=== PATIENT | male | born 1990 | race Caucasian/White ===

== ENCOUNTER 2018-04-14 15:47 | Inpatient (IN) | payer MEDICAID ==
--- NOTE | 2018-04-14 16:05 | EDPHY ---
H & P Time Seen by Provider: 04/14/18 15:55 Allergies/Adverse Reactions: No Known Allergies Allergy (Unverified 04/14/18 15:51) Home Medications: Medication Instructions Recorded NK [No Known Home Meds] 04/14/18 Medical Decision Making ED Course/Re-evaluation: CHIEF COMPLAINT: Manic episode HISTORY OF PRESENT ILLNESS: 27-year-old gentleman who arrived 2 days ago from [employer] [employer]. He has family in the area he claims. He has been at the longterm. He states that the company used to work for [employer] is trying to smuggle drugs from the [place]. He also states the [employer] fired him for communication problems. He also states that the [employer] and probably some national security people have stolen his identity. He also is requesting to be placed in witness protection program. He also states that his blood in only his blood can cure multiple diseases and he would like me to test his blood for those properties this evening. REVIEW OF SYSTEMS: A comprehensive 10 system review of systems is otherwise negative aside from elements mentioned in the history of present illness and medical decision making. PHYSICAL EXAM: General Appearance: Alert, well hydrated, appropriate, and non-toxic appearing. Head: Atraumatic without scalp tenderness or obvious injury Eyes: Pupils equal, round, reactive to light and accommodation, EOMI, no trauma , no injection. Ears: Clear bilaterally, no perforation, normal landmarks Nose: Atraumatic, no rhinorrhea, clear. Throat: There is no erythema or exudates, no lesions, normal tonsils, mucus membranes moist. Neck: Supple, 2+ carotid upstroke, nontender, no lymphadenopathy. Respiratory: No retractions, no distress, no wheezes, and no accessory muscle use. Lungs are clear to auscultation bilaterally. Cardiovascular: Regular rate and rhythm, no murmurs, rubs, or gallops. Bilateral carotid, radial, dorsalis pedis, and posterior tibial pulses intact. Good capillary refill all extremities. Gastrointestinal: Abdomen is soft, nontender, non-distended, no masses, no rebound, no guarding, no peritoneal signs. Musculoskeletal: Normal active ROM of all extremities, atraumatic. Neurological: Alert, appropriate, and interactive. The patient has normal DTRs and non-focal cranial nerves, motor, sensory, and cerebellar exam. Skin: No rashes, good turgor, no nodules on palpation. Past medical history: Hospitalized in the past for bipolar disorder on [facility] not currently Past surgical history: Denies Family history: Denies Social history: Single, not employed, homeless, denies use of tobacco drugs or alcohol DIFFERENTIAL DIAGNOSIS: The differential diagnosis for the patient's manic depression included but was not limited to functional and major depression, situational depression, bipolar disorder, medication side effect, drugs, and alcohol abuse. MEDICAL DECISION MAKING: Patient is in no acute distress and is hemodynamically stable. I perform screening laboratory studies. This patient is medically cleared for psychiatric evaluation. I believe this patient to use to be on a mood stabilizer should probably still be on 1. I am recommending hospitalization as this patient seems to be somewhat psychotic but is quite cooperative and answering questions appropriately
[2018-04-14] MEDS ORDERED: NICOTINE POLACRILEX 2 MG GUM B PRN (16:17)
[2018-04-14 16:22] LABS: PLATELET COUNT 204 10^3/uL (150-400)
--- NOTE | 2018-04-14 19:00 | ASMTTCLDSP ---
TLC Discharge Disposition Discharge Concerns/Recommendations: Notes: In consultation with [facility] ED physician, Arnel Benitez MD and on-call psychiatrist, Kelvin Bruno MD, both concurred that pt appears to meet 27-65 criteria requiring psychiatric hospitalization as pt appears to be at risk of harm to self due to a mental illness condition. Pt was given the 3[facility] prohibited belongings list while in the ED. Was patient given the Answers: Yes Inpatient Behavioral Health Prohibited Belongings List while in the ED? For inpatient Kelvin Bruno MD admission, the following psychiatrist agreed to accept patient for admission to Behavioral Health ([facility]): Date Signed: 04/14/2018 06:59 PM Electronically Signed By:Rivka Noble
--- NOTE | 2018-04-14 19:26 | ASMTTLCEVL ---
TLC Evaluation - Basic Information Evaluation Start Date and 04/14/2018 05:30 PM Time Hospital Status Answers: M1 Hold 72-hr M1 Hold Start Date 04/14/2018 07:00 PM and Time Patient statement Notes: I work at [employer]. I suspected a employee was smuggling cocaine and asked for my help. " Diagnosis History Notes: Pt reports a hx of bipolar disorder. Prior suicide attempts Notes: Pt denied any prior suicide attempts. Prior hospitalizations Notes: Pt reports discharging from [facility] 2 days ago after a 12 days stay. Treatment Responses Notes: Unknown History of violence Notes: Pt denied any HI. Therapist: None- Pt stated he has an appt for [facility] on 04/17/17. Medications (name, dosage, route, freq uency) Notes: Possibly trisepta. Pt state he was on a medication, which he believes may have been trisepta. He states he was only on it for 2 days and is no longer taking it now. Allergies/Reaction Notes: Nka Sleep Notes: Pt reports his sleep as fair Appetite Notes: Pt reports his appetite as fair. Medical/Surgical history Notes: None reported. Substance use history (frequency, intensity, his tory, duration) Notes: Pt reported, I have a slight drinking problem. When questioned further about his drinking habits, pt stated, I dont drink at work but I drink a little too much, maybe 2-3 drinks a couple times a week. Pts utox was negative and bal was.0. Family composition Notes: Pt stated his parents are both . Family psychiatric/substance abuse history Notes: Pt reported his father had a bit of a drinking problem. No other mental illness hx known. Developmental history Notes: Pt reported his childhood as idyllic. He reports he grew up in [place], [place]. He reports his mother of cancer when he was 13 years old and then his father later of a heart attack when pt was 20 years old. Pt denied any abuse hx. Abuse concerns Answers: None Marital status/children Notes: unmarried, no children. Living situation Notes: Pt stated he is homeless and has been for 1 week. Pt states he was staying at his stepparents house. Pt appeared vague around his living situation. Sexual history/orientation Notes: Pt is heterosexual. Peer support/family strengths Notes: Pt reports his support system is limited. He reports he had a good support system when he was working. Education level/history Notes: Pt reports he has 6 credits left to finish at school and plans to go back to school. Work history Notes: Pt is not currently working. Notes: None reported. Legal Notes: None reported. Yarsanism/Spiritual Notes: None reported. Leisure Notes: Pt enjoys playing sports. Collateral Notes: This sports writer attempted to contact pts Uncle Juan Ramon Goyal [phone]. Patient's strengths Answers: Athletic (Please select at least TWO strengths): Willingness [facility] Evaluation - Mental Status Exam Appearance: Answers: Appropriate Eye Contact: Answers: Good/Direct Mood: Answers: Euthymic Affect: Answers: Calm Relaxed Behavior: Answers: Cooperative Speech: Answers: Unclear Perseverating Thought Process: Answers: Paranoid Insight: Answers: Fair Judgement: Answers: Fair Anxiety Signs/Symptoms Answers: Generalized Anxiety Delusions: Answers: Paranoid Ideation Persecution Pt reported to have Answers: No suicidal/self-injuring ideation/behavior? Pt reported to be making Answers: Yes suicidal/self-injuring threats? Pt reported to have Answers: No aggression/assault ideation/behavior? Pt reported to be making Answers: No aggression/assault threats? Pt exhibits inability to Answers: No care for self/grave disability? Ideation/behavior is Answers: No chronic? Pt has access to means to Answers: No execute the plan? Ideation involves Answers: No serious/lethal intent? History of Answers: No suicidal/self-injuring ideation, behavior, or threats? History of Answers: No aggressive/assaultive ideation, behavior, or threats? History of serious Answers: No physical harm to self/others while in treatment setting? [facility] Evaluation - Suicide/Homicide Risk Suicide Risk Factors: Answers: Unstable Living Situation Bipolar Disorder Homicide/violence risk Answers: None factors: Current Suicidal Answers: Yes Ideation? Current Suicide Ideation Pt stated if he leaves the hospital, he will be Frequency: suicidal. Current Suicidal Ideation Answers: No in the Past 48 Hours? Current Suicidal Ideation Answers: No in the Past Month? Suicide Internal Answers: Guerline with Stress Protective Factors: Suicide External Answers: Positive Therapeutic Protective Factors: Relationships Ranking of patient's Answers: Moderate suicidal risk: Ranking of patient's Answers: Low homicidal risk: [facility] Evaluation - Wrap-up AXIS I Diagnosis (include DSM-V and ICD-10 codes), must also be entered in [facility], which is the source of truth. Notes: In consultation with [facility] ED physician, Arnel Benitez MD and on-call psychiatrist, Kelvin Bruno MD, both concurred that pt appears to meet 27-65 criteria requiring psychiatric hospitalization as pt appears to be at risk of harm to self due to a mental illness condition. Pt was given the 3N prohibited belongings list while in the ED. Bipolar I Disorder, with Psychotic Features 296.44 (F31.2) Evaluation End Date and 04/14/2018 07:00 PM Time (HH:ORTIZ): Date Signed: 04/14/2018 07:25 PM Electronically Signed By:Rivka Noble
--- NOTE | 2018-04-14 19:48 | ASMTLCPROG ---
Notes Note: Notes: Spoke with Uncle Juan Ramon Fallon cell [phone]. Work number [phone]. Juan Ramon stated pt has had difficulty holding jobs and has been showing "manic symptoms" for the past 12-18 months. While in [place], pt was diagnosed, with bipolar and they also suspected possibly schizophrenia. Pt has spending large amounts of money and has spent almost all the money in his trust fund. Juan Ramon stated that while pt was in [place] pt was resistent to taking any medications. Currently, Juan Ramon is helping pt get into [facility] and pt is on the wait list. Date Signed: 04/14/2018 07:47 PM Electronically Signed By:Rivka Noble
[2018-04-14] MEDS ORDERED: OLANZapine DISINTEGR 10 MG TAB PO PRN (22:42)
[2018-04-14] MEDS ORDERED: MAG HYDROX/AL HYDROX/SIMETH 30 ML UDCUP PO PRN (22:42)
[2018-04-14] MEDS ORDERED: LORazepam 0.5 MG TAB PO PRN (22:42)
[2018-04-14] MEDS ORDERED: MAGNESIUM HYDROXIDE 30 ML UDCUP PO PRN (22:42)
[2018-04-14] MEDS ORDERED: ACETAMINOPHEN 325 MG TAB PO PRN (22:42)
--- NOTE | 2018-04-14 23:28 | PDMN ---
Medical Necessity Medical necessity: Pt meets IP criteria as of 04/14/2018 per and [facility]- IP (Bipolar Disorders, Adult; Inpatient Care); 72 hr M1 hold, imminent danger to self.
--- NOTE | 2018-04-15 08:14 | PDGENHP ---
History and Physical - Chief Complaint concern for manic episode - History of Present Illness 27yo M with reported history of bipolar disorder presents with symptoms concerning for a manic episode. 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 He was also requesting to be placed in witness protection and stating that his blood can cure multiple diseases. He was then admitted to the [facility]. On my interview with the patient, he is sitting up reading in bed. He is unable to tell me where he's been living recently but says he has family about an hour away. He denies any recent localizing infectious symptoms or fevers/chills. He reports previously being on trileptal for his bipolar but developed a rash; he is unsure who was prescribing this. He denies using any illicit substances. History Information - Allergies/Home Medication List Allergies/Adverse Reactions: No Known Allergies Allergy (Unverified 04/14/18 15:51) Home Medications: Nicotine Polacrilex [Nicotine Gum] 2 mg BC Q3 PRN 04/14/18 [Last Taken Unknown] risperiDONE [Risperdal 0.5mg (*)] 0.5 mg PO BID 04/14/18 [Last Taken 04/12/18] I have personally reviewed and updated: family history, medical history, social history, surgical history - Past Medical History Additional medical history: suspected bipolar disorder - Surgical History Additional surgical history: LLE tib-fib and talus surgical repair (01/2017 in [place]) - Family History Positive for: non-pertinent - Social History Smoking Status: Current every day smoker (1/2 ppd) Alcohol Use: Other (previous heavy use, now rarely) Drug Use: None Additional social history: he is unable to tell me where he is living, went to high school and a few years of college ([employer]) in [place], attended grad school at [employer] and studied [employer] as well as business; smokes 1/2 ppd, no recent etoh but previously used more heavily in early 20s, denies illicits Review of Systems Review of Systems: ROS: 10pt was reviewed & negative except for what was stated in HPI & below Physical Exam Physical Exam: Temp Pulse Resp BP Pulse Ox 36.5 C 70 15 102/67 97 12/31/18 06:00 04/15/18 06:00 04/15/18 06:00 04/15/18 06:00 04/15/18 06:00 Constitutional: no apparent distress, appears nourished, not in pain Eyes: PERRL, anicteric sclera, EOMI Ears, Nose, Mouth, Throat: moist mucous membranes, hearing normal, ears appear normal, no oral mucosal ulcers Cardiovascular: regular rate and rhythym, no murmur, rub, or gallop, No edema Respiratory: no respiratory distress, no rales or rhonchi, clear to auscultation Gastrointestinal: normoactive bowel sounds, soft, non-tender abdomen, no palpable masses Genitourinary: no bladder fullness, no bladder tenderness Skin: warm, normal color, no rashes or abrasions, no fluctuance, no induration, other (well healed LLE scar), No mottled Musculoskeletal: full muscle strength, no muscle tenderness, normal joint ROM, no joint effusions Neurologic: AAOx3 Psychiatric: interacting appropriately, other (occasionally laughing) Lab Data & Imaging Review 04/14/18 16:08 04/14/18 16:08 WBC 7.44 10^3/uL (3.80-9.50) 04/14/18 16:08 RBC 5.10 10^6/uL (4.40-6.38) 04/14/18 16:08 Hgb 16.9 g/dL (13.7-17.5) 04/14/18 16:08 Hct 47.7 % (40.0-51.0) 04/14/18 16:08 MCV 93.5 fL (81.5-99.8) 04/14/18 16:08 MCH 33.1 pg (27.9-34.1) 04/14/18 16:08 MCHC 35.4 g/dL (32.4-36.7) 04/14/18 16:08 RDW 11.3 % (11.5-15.2) L 04/14/18 16:08 Plt Count 204 10^3/uL (150-400) 04/14/18 16:08 MPV 12.2 fL (8.7-11.7) H 04/14/18 16:08 Neut % (Auto) 66.1 % (39.3-74.2) 04/14/18 16:08 Lymph % (Auto) 22.4 % (15.0-45.0) 04/14/18 16:08 [place] % (Auto) 9.3 % (4.5-13.0) 04/14/18 16:08 Eos % (Auto) 1.6 % (0.6-7.6) 04/14/18 16:08 Baso % (Auto) 0.3 % (0.3-1.7) 04/14/18 16:08 Nucleat RBC Rel Count 0.0 % (0.0-0.2) 04/14/18 16:08 Absolute Neuts (auto) 4.92 10^3/uL (1.70-6.50) 04/14/18 16:08 Absolute Lymphs (auto) 1.67 10^3/uL (1.00-3.00) 04/14/18 16:08 Absolute Monos (auto) 0.69 10^3/uL (0.30-0.80) 04/14/18 16:08 Absolute Eos (auto) 0.12 10^3/uL (0.03-0.40) 04/14/18 16:08 Absolute Basos (auto) 0.02 10^3/uL (0.02-0.10) 04/14/18 16:08 Absolute Nucleated RBC 0.00 10^3/uL (0-0.01) 04/14/18 16:08 Immature Gran % 0.3 % (0.0-1.1) 04/14/18 16:08 Immature Gran # 0.02 10^3/uL (0.00-0.10) 04/14/18 16:08 Sodium 137 mEq/L (135-145) 04/14/18 16:08 Potassium 4.3 mEq/L (3.5-5.2) 04/14/18 16:08 Chloride 104 mEq/L (97-110) 04/14/18 16:08 Carbon Dioxide 26 mEq/l (22-31) 04/14/18 16:08 Anion Gap 7 mEq/L (6-14) 04/14/18 16:08 BUN 14 mg/dL (7-23) 04/14/18 16:08 Creatinine 0.8 mg/dL (0.7-1.3) 04/14/18 16:08 Estimated GFR > 60 04/14/18 16:08 Glucose 102 mg/dL (70-100) H 04/14/18 16:08 Calcium 9.5 mg/dL (8.5-10.4) 04/14/18 16:08 Total Bilirubin 0.9 mg/dL (0.1-1.4) 04/15/18 06:00 Conjugated Bilirubin 0.4 mg/dL (0.0-0.5) 04/15/18 06:00 Unconjugated Bilirubin 0.5 mg/dL (0.0-1.1) 04/15/18 06:00 AST 34 IU/L (17-59) 04/15/18 06:00 ALT 22 IU/L (21-72) 04/15/18 06:00 Alkaline Phosphatase 48 IU/L (38-126) 04/15/18 06:00 Total Protein 7.5 g/dL (6.3-8.2) 04/15/18 06:00 Albumin 4.5 g/dL (3.5-5.0) 04/15/18 06:00 Triglycerides 73 mg/dL (40-150) 04/15/18 06:00 Cholesterol 170 mg/dL (140-200) 04/15/18 06:00 Cholesterol Risk Factr 0.5 (0.2-1.0) 04/15/18 06:00 LDL Cholesterol, Calc 94 mg/dL (60-100) 04/15/18 06:00 LDL Risk Factor 0.6 (0.2-1.0) 04/15/18 06:00 VLDL Cholesterol 15 mg/dL (8-25) 04/15/18 06:00 Non-HDL Cholesterol 109 mg/dL (90-129) 04/15/18 06:00 HDL Cholesterol 61 mg/dL (40-70) 04/15/18 06:00 LDL/HDL Ratio 1.55 RATIO (1.00-3.64) 04/15/18 06:00 Cholesterol/HDL Ratio 2.79 RATIO (1.00-4.97) 04/15/18 06:00 TSH 0.686 uIU/mL (0.465-4.680) 04/15/18 06:00 Salicylates < 1.0 mg/dL (2.0-20.0) L 04/14/18 16:08 Urine Opiates Screen NEGATIVE (NEGATIVE) 04/14/18 17:00 Acetaminophen < 10 mcg/mL (10-30) L 04/14/18 16:08 Urine Barbiturates NEGATIVE (NEGATIVE) 04/14/18 17:00 Ur Phencyclidine Scrn NEGATIVE (NEGATIVE) 04/14/18 17:00 Ur Amphetamine Screen NEGATIVE (NEGATIVE) 04/14/18 17:00 U Benzodiazepines Scrn NEGATIVE (NEGATIVE) 04/14/18 17:00 Urine Cocaine Screen NEGATIVE (NEGATIVE) 04/14/18 17:00 U Marijuana (THC) Screen NEGATIVE (NEGATIVE) 04/14/18 17:00 Ethyl Alcohol < 10 mg/dL (0-10) 04/14/18 16:08 Assessment & Plan Assessment: Unspecified psychosis (Acute) Plan: 27yo M with reported bipolar disorder admitted for catherine. 1. Manic episode: Management per psychiatry team for possible mood stabilizer. Previously on trileptal but reportedly had rash with this. 2. Tobacco use: Agree with nicotine replacement as ordered. Can trial patch if needed. Internal medicine will sign off but please page/call with questions. Thanks.
--- NOTE | 2018-04-15 09:10 | ASMTBHMTP ---
Master Treatment Plan Master Treatment Plan Answers: Mood Instability with for: Psychosis Date: 04/15/2018 Diagnosis on Admission: Bipolar 1 Disorder, with Psychotic Features 296.44 Expected length of stay: 3-5 Days Reason for admission: Notes: Per TLC Evaluation - Pt. stated "I work as [employer]. I suspected a employee was smuggling cocaine and asked for me help." Patient's stated presenting problems: Notes: Pt. shared about an employee he suspected was smuggling cocaine and how this employee was fired. Pt. shared about how he then had his information stolen and lost his own job. Patient's goals for treatment: Notes: "Get some exercise", "Get an acuate diagnosis" and "get into Witness Protection" Patient's strengths: Notes: "Can put a puzzle together like no one I've met", and "Physical apptitude" Identify supports outside of hospital: Notes: Trusted uncle and tax associate attorney in [place]. Discharge criteria: Notes: Patient will demonstrate more stable mood by discharge. Initial disposition plan/considerations: Notes: Enter Witness protection or "get into a more suitable housing". Master Treatment Plan Required Signatures Psychiatrist signature: Answers: Psychiatrist: RN on-shift signature: Answers: RN: Patient signature: Answers: Patient: Date Signed: 04/15/2018 09:10 AM Electronically Signed By:Elisa Curtis
[2018-04-15] MEDS: NICOTINE POLACRILEX 2 MG GUM B PRN ×3 (09:18→17:58)
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
[2018-04-15] MEDS: OLANZapine DISINTEGR 10 MG TAB PO SCH (20:59)
--- NOTE | 2018-04-16 11:08 | SOAPPROG ---
SOAP Progress Note Assessment/Plan: Assessment: Bipolar I Disorder, with mood congruent psych features, Alcohol Use Disorder, Severe. R/O Schizoaffective Disorder. Slight/No improvement noted. (see subjective/objective note). Patient is not safe to discharge at this time as patient continues to exhibit signs of psychosis, and express psychosis symptoms. Patient requires continued inpatient care because of current psychosis, and requires inpatient level of care to stabilize in order to no longer be gravely disabled due to mental illness. Patient is unable to communicate his basic needs due to inability to test reality, and continues to require prompting and direction from staff for ADLs. Patient exhibits inability to provide for himself, neglecting self-care, withdrawn from social interactions, currently shows inability to maintain any appropriate aspect of personal responsibility as an adult, patient becomes agitated and irritable easily when asked simple and appropriate questions from staff. Currently there is no support system in place to manage patients functional impairment at lower level of care. Patient could benefit from continued inpatient hospitalization for crisis stabilization, safety, and medication evaluation. Plan: 1. Psychotropic medications: After reviewing options, risks, and benefits patient agrees to continue current medications. No other medication changes at this time as more time is needed to determine ongoing tolerability and efficacy. Plan is to continue to observe patient for response and side effects from medications, and ongoing monitoring and evaluation. 2. Review with patient informed consent and recommendations for psychotropic medication treatment listed below. 3. Labs: no additional labs at this time. 4. Therapy: continue milieu and group therapy. 5. Further investigation including gathering information from patients relatives and review of past case records to inform treatment plan. 6. Safety/Wellness plan and follow-up outpatient appointments to be established prior to discharge. Next steps are for patient to meet with zoo caretaker to plan a safe discharge plan and establish outpatient services for ongoing treatment. 7. Confer with inpatient treatment team regarding treatment plan. 8. Psychosocial stressors addressed through corrections caseworker. 9. Legal status: M1. 10. Consider discharge next week if patient is in stable condition, safe, and has a safe discharge plan. 11. Substance abuse interventions: alcohol. 12. Contact Dr. Joyce CO Soni to determine if patient has started intake for [facility]. PSYCHOTROPIC MEDICATION TREATMENT INFORMED CONSENT and RECOMMENDATIONS: Review nature of condition, diagnosis, and prognosis. Review nature and purpose of psychotropic medication treatment. Review type of psychotropic medications being ordered. Review risk and benefits of psychotropic medication treatment. Review probable length of time patient will need to take medications. Review risk and benefits of not undergoing psychotropic medication treatment. Review alternative treatments to psychotropic medications. Review psychotropic medications contraindications, drug-drug interactions, side effects, and importance of reporting any side effects to a psychiatric provider or nurse during inpatient hospitalization, and upon discharge to patients psychiatric outpatient provider, primary care provider, or other health patient care associate. Review importance of asking a nurse, psychiatric provider, or primary care provider any questions or problems concerning the psychotropic medications. Verify patient understands the information that has been provided, and understands, accepts, and agrees to psychotropic medications. Review patients safety plan and importance of patient to report to staff while hospitalized if patient is ever a danger to self/others, or unable to care for self, and upon discharge, the importance for patient to contact [facility] or [facility], or go to the nearest emergency room, if patient is ever a danger to self/others, or unable to care for self. Recommend that upon discharge patient establish medication management treatment with a psychiatric provider, establishes routine therapy appointments, and follow-up with primary care provider. Verify patient understands and agrees to these recommendations. 04/16/18 11:09 Subjective: Following up with patient for evaluation of psychosis, catherine, and safety. Patient reports, "I am going to refuse medications from now on. I came here to get in witness protection program for knocking out a drug ring. They need to look into Sidney's phone records to prove the drug ring." Patient expresses the following psychiatric symptoms none. Patient reports taking medications as prescribed, and describes response to medications as "too tired." Patient agrees to continue Zyprexa Zydis 10 mg po QHS after provided medication education including side effects. Patient does not report other undesirable side effects from the medications, and agrees to continue current medications. Patient describes getting 10 hours of sleep. Patient reports prior to his admission, his uncle was looking into sending him to [facility], and he reports he also had an appointment at [facility] for intake. Patient agrees to sign ELE forms for CC to contact these facilities for coordination of care. Objective: Vital Signs Temp Pulse Resp BP Pulse Ox 36.8 C 64 14 114/64 97 04/16/18 06:00 04/16/18 06:00 04/16/18 06:00 04/16/18 06:00 04/16/18 06:00 NURSING REPORT: Consulted with nursing for update on patients progress in treatment. Nurses report patient is not engaged in treatment, is not attending groups, slept 7 hours, expresses the following psychiatric symptoms: none, exhibits the following psychiatric symptoms: paranoid delusions; withdrawn from social interactions; is eating all meals, is agreeable to medications and taking as prescribed with no report of side effects, with no s/s of EPS/ akathisia, and denies SI/HI, denies A/V hallucinations, and denies delusions. MSE: The patient is a well-nourished male looking stated chronological age. Attire is appropriate dress is casual. Grooming status is inappropriate and disheveled. Ambulation is independent. Gait is normal and coordinated. Posture is normal and relaxed. Eye contact is appropriate. Motor activity is appropriate with purposeful, organized, coordinated movements; with no involuntary movements. Attitude is uncooperative, defensive and guarded at times. Patient appears distracted and does not relate well to this interviewer. Language production is spontaneous. R/R/V normal. Articulation is clear. Patient reports mood as okay with appropriate affect. Patients thought process is non-linear, illogical, with loose associations, and tangential. Patient does not report suicidal/homicidal thoughts, ideas, or plans. Patient denies auditory, visual hallucinations. Patient reports delusions. Patient does not appear to be attending to internal stimuli. Patients attention and concentration are poor. Patient is oriented to person, place, time. Patients insight is poor. Patients judgment is poor. SUBSTANCE ABUSE BRIEF INTERVENTION: Brief intervention regarding the risks of alcohol abuse is provided to patient with goal to reduce the risk of harm that could result from the continued use of alcohol, with the general aim to investigate the problem, raise awareness of problem, develop a solution with the patient, recommend a specific change or activity, and motivate the patient toward change. Assess substance abuse behavior and give supportive advice about harm reduction, recommend a reduction in hazardous/at-risk consumption patterns, and facilitate referrals for additional specialized treatment with home care consultant. Intermediate goal is for the patient to quit and attend outpatient substance abuse treatment. Intervention focus on intermediate goals to allow for more immediate success in the treatment process to keep the patient motivated. Review following with patient: Alcohol/Binge Drinking risks : short-term: injuries, violence, alcohol poisoning, risky sexual behaviors. Long-term: high blood pressure, stroke, liver disease, digestive problems, cancer, learning and memory problems, depression and anxiety, social problems, and alcohol dependence. OUTPATIENT SUBSTANCE ABUSE TREATMENT: Patient referred to outpatient provider and treatment for continued treatment related to substance abuse. - Time Spent With Patient Time Spent With Patient: 25 minutes, met with patient individually and patient with treatment team to review treatment plan and goals for hospitalization. - Pending Discharge Pending Discharge Within 24 Hours: No Pending Discharge Within 48 Hours: No ICD10 Worksheet Patient Problems: Problems Problem Status Onset Unspecified psychosis Acute
--- NOTE | 2018-04-16 14:14 | ASMTCMCOM ---
CM Note CM Note Notes: The patient participated in clinical treatment team rounds. The patient was recently discharged from [facility] inpatient care. The patient presents as grandiose and paranoid. 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 Per Juan Ramon Goyal, "His parents are both ([facility] 2009, [facility] 2004). He has lost two jobs in the last several months; one in [place] and another in [place]. He obviously has no money. He is looking for someone in the family to help him. His step mother paid for him to come to [place] from [place]. He was exhibiting manic episodes and went to the local hospital. He was released from [facility] on Sunday (04/12/18). I don't know whether he took his medication on Sunday. He stipulated with medication after one week" because his family made it a condition of their support. Juan Ramon has coordinated the patient's records be sent from [facility] to [facility] for review and possible admission into [facility]. Date Signed: 04/16/2018 02:13 PM Electronically Signed By:Tammy Dominguez
[2018-04-16] MEDS: NICOTINE POLACRILEX 2 MG GUM B PRN (16:11)
[2018-04-16] MEDS: OLANZapine DISINTEGR 10 MG TAB PO SCH (20:40)
[2018-04-17] MEDS: NICOTINE POLACRILEX 2 MG GUM B PRN ×2 (07:39→18:46)
--- NOTE | 2018-04-17 08:20 | SOAPPROG ---
SOAP Progress Note Assessment/Plan: Assessment: Bipolar I Disorder, with mood congruent psych features, Alcohol Use Disorder, Severe. R/O Schizoaffective Disorder. No improvement noted. (see subjective/ objective note). Patient is not safe to discharge at this time as patient continues to exhibit signs of psychosis, and express psychosis symptoms. Patient requires continued inpatient care because of current psychosis, and requires inpatient level of care to stabilize in order to no longer be gravely disabled due to mental illness. Patient has poor insight and judgement to current condition, refusing medications, and inability to test reality. Patient is unable to communicate his basic needs due to inability to test reality, and continues to require prompting and direction from staff for ADLs. Patient exhibits inability to provide for himself, neglecting self-care, withdrawn from social interactions, currently shows inability to maintain any appropriate aspect of personal responsibility as an adult. Currently there is no support system in place to manage patients functional impairment at lower level of care. Patient could benefit from continued inpatient hospitalization for crisis stabilization, safety, and medication evaluation. Plan: 1. Psychotropic medications: After reviewing options, risks, and benefits patient is not agreeable to medications. Plan is to consult with attending MD for short-term certification and court-ordered medications. 2. Review with patient informed consent and recommendations for psychotropic medication treatment listed below 3. Labs: no additional labs at this time 4. Therapy: continue milieu and group therapy 5. Further investigation including gathering information from patients relatives and review of past case records to inform treatment plan. 6. Safety/Wellness plan and follow-up outpatient appointments to be established prior to discharge. Next steps are for patient to meet with out of school hours care worker to plan a safe discharge plan and establish outpatient services for ongoing treatment. 7. Confer with inpatient treatment team regarding treatment plan. 8. Psychosocial stressors addressed through family service caseworker 9. Legal status: M1. Consult with MD for short-term certification. 10. Consider discharge next week if patient is in stable condition, safe, and has a safe discharge plan. 11. Substance abuse interventions: alcohol PSYCHOTROPIC MEDICATION TREATMENT INFORMED CONSENT and RECOMMENDATIONS: Review nature of condition, diagnosis, and prognosis. Review nature and purpose of psychotropic medication treatment. Review type of psychotropic medications being ordered. Review risk and benefits of psychotropic medication treatment. Review probable length of time patient will need to take medications. Review risk and benefits of not undergoing psychotropic medication treatment. Review alternative treatments to psychotropic medications. Review psychotropic medications contraindications, drug-drug interactions, side effects, and importance of reporting any side effects to a psychiatric provider or nurse during inpatient hospitalization, and upon discharge to patients psychiatric outpatient provider, primary care provider, or other health residential child care counselor. Review importance of asking a nurse, psychiatric provider, or primary care provider any questions or problems concerning the psychotropic medications. Verify patient understands the information that has been provided, and understands, accepts, and agrees to psychotropic medications. Review patients safety plan and importance of patient to report to staff while hospitalized if patient is ever a danger to self/others, or unable to care for self, and upon discharge, the importance for patient to contact [place] [facility] or [facility], or go to the nearest emergency room, if patient is ever a danger to self/others, or unable to care for self. Recommend that upon discharge patient establish medication management treatment with a psychiatric provider, establishes routine therapy appointments, and follow-up with primary care provider. Verify patient understands and agrees to these recommendations. 04/17/18 08:20 Subjective: Following up with patient for evaluation of psychosis, catherine, and safety. Patient reports, "Would rather talk witness protection thing instead of medications. I busted a pretty big drug ring in [place] so the least I need is witness protection program. 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 My main mistake was not reporting it the Feds. I told HR about it, and then they fired me for communication. Perhaps the whole company was involved in this drug ring. Everything I am saying is pretty accurate, I put together a YouTube video about this. Then I went outside and stood in front of the traffic lights because I know who runs the traffic lights. People are following me through cameras, by the [facility]. I am being monitored because I got put on a high security clearance. I am going through a series of tests. Mainly psychological tests, making sure I am more consistent in behavior. A lot of people are after me after busting a big drug ring in [place]." Patient expresses the following psychiatric symptoms none. Patient reports not taking medications as prescribed, and states he did not want to take the medication due to being too sedated yesterday when waking up. Patient states, "I would prefer not going on any medications to keep my head clear for this witness protection thing." Objective: Vital Signs Temp Pulse Resp BP Pulse Ox 36.7 C 66 14 116/59 L 97 04/17/18 06:00 04/17/18 06:00 04/17/18 06:00 04/17/18 06:00 04/17/18 06:00 NURSING REPORT: Consulted with nursing for update on patients progress in treatment. Nurses report patient is not engaged in treatment, is not attending groups, slept 7 hours, expresses the following psychiatric symptoms: none, exhibits the following psychiatric symptoms: paranoid delusions; withdrawn from social interactions; is eating all meals, is not agreeable to medications; patient refused Zyprexa Zydis 10 mg po QHS; denies SI/HI, denies A/V hallucinations, and reports delusions regarding needing witness protection due to busting a drug ring. MSE: The patient is a well-nourished male looking stated chronological age. Attire is appropriate dress is casual. Grooming status is inappropriate and disheveled. Ambulation is independent. Gait is normal and coordinated. Posture is normal and relaxed. Eye contact is appropriate. Motor activity is appropriate with purposeful, organized, coordinated movements; with no involuntary movements. Attitude is uncooperative, defensive and guarded at times. Patient appears distracted and does not relate well to this interviewer. Language production is spontaneous. R/R/V normal. Articulation is clear. Patient reports mood as okay with appropriate affect. Patients thought process is non-linear, illogical, with loose associations, and tangential. Patient does not report suicidal/homicidal thoughts, ideas, or plans. Patient denies auditory, visual hallucinations. Patient reports delusions. Patient does not appear to be attending to internal stimuli. Patients attention and concentration are poor. Patient is oriented to person, place, time. Patients insight is poor. Patients judgment is poor. SUBSTANCE ABUSE BRIEF INTERVENTION: Brief intervention regarding the risks of alcohol abuse is provided to patient with goal to reduce the risk of harm that could result from the continued use of alcohol, with the general aim to investigate the problem, raise awareness of problem, develop a solution with the patient, recommend a specific change or activity, and motivate the patient toward change. Assess substance abuse behavior and give supportive advice about harm reduction, recommend a reduction in hazardous/at-risk consumption patterns, and facilitate referrals for additional specialized treatment with summer child caregiver. Intermediate goal is for the patient to quit and attend outpatient substance abuse treatment. Intervention focus on intermediate goals to allow for more immediate success in the treatment process to keep the patient motivated. Review following with patient: Alcohol/Binge Drinking risks : short-term: injuries, violence, alcohol poisoning, risky sexual behaviors. Long-term: high blood pressure, stroke, liver disease, digestive problems, cancer, learning and memory problems, depression and anxiety, social problems, and alcohol dependence. OUTPATIENT SUBSTANCE ABUSE TREATMENT: Patient referred to outpatient provider and treatment for continued treatment related to substance abuse. - Time Spent With Patient Time Spent With Patient: 15 minutes, met with patient individually. - Pending Discharge Pending Discharge Within 24 Hours: No Pending Discharge Within 48 Hours: No ICD10 Worksheet Patient Problems: Problems Problem Status Onset Alcohol use disorder, severe, dependence Acute Nicotine dependence Acute Unspecified psychosis Acute
[2018-04-17] MEDS: OLANZapine DISINTEGR 10 MG TAB PO SCH (20:06)
[2018-04-18] MEDS: NICOTINE POLACRILEX 2 MG GUM B PRN ×2 (03:38→09:52)
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
[2018-04-18] MEDS ORDERED: RISPERIDONE 1 MG ODT TAB SL SCH (09:00)
--- NOTE | 2018-04-19 08:12 | SOAPPROG ---
SOAP Progress Note Assessment/Plan: Assessment: Bipolar I Disorder, with mood congruent psych features, Alcohol Use Disorder, Severe. R/O Schizoaffective Disorder. No improvement noted. (see subjective/ objective note). Patient is not safe to discharge at this time as patient continues to exhibit signs of psychosis, and express psychosis symptoms. Patient requires continued inpatient care because of current psychosis, and requires inpatient level of care to stabilize in order to no longer be gravely disabled due to mental illness. Patient has poor insight and judgement to current condition, refusing medications, and inability to test reality. Patient is unable to communicate his basic needs due to inability to test reality, and continues to require prompting and direction from staff for ADLs. Patient exhibits inability to provide for himself, neglecting self-care, withdrawn from social interactions, currently shows inability to maintain any appropriate aspect of personal responsibility as an adult. Currently there is no support system in place to manage patients functional impairment at lower level of care. Patient could benefit from continued inpatient hospitalization for crisis stabilization, safety, and medication evaluation. Plan: 1. Psychotropic medications: After reviewing options, risks, and benefits patient agrees to continue current medications with following changes: increase Risperidone M-tab to 2 mg SL QD. No other medication changes at this time as more time is needed to determine ongoing tolerability and efficacy. Plan is to continue to observe patient for response and side effects from medications, and ongoing monitoring and evaluation. 2. Review with patient informed consent and recommendations for psychotropic medication treatment listed below 3. Labs: no additional labs at this time 4. Therapy: continue milieu and group therapy 5. Further investigation including gathering information from patients relatives and review of past case records to inform treatment plan. 6. Safety/Wellness plan and follow-up outpatient appointments to be established prior to discharge. Next steps are for patient to meet with childcare teacher to plan a safe discharge plan and establish outpatient services for ongoing treatment. 7. Confer with inpatient treatment team regarding treatment plan. 8. Psychosocial stressors addressed through continuous pillowcase cutter 9. Legal status: [facility] 10. Consider discharge next week if patient is in stable condition, safe, and has a safe discharge plan. 11. Substance abuse interventions: alcohol PSYCHOTROPIC MEDICATION TREATMENT INFORMED CONSENT and RECOMMENDATIONS: Review nature of condition, diagnosis, and prognosis. Review nature and purpose of psychotropic medication treatment. Review type of psychotropic medications being ordered. Review risk and benefits of psychotropic medication treatment. Review probable length of time patient will need to take medications. Review risk and benefits of not undergoing psychotropic medication treatment. Review alternative treatments to psychotropic medications. Review psychotropic medications contraindications, drug-drug interactions, side effects, and importance of reporting any side effects to a psychiatric provider or nurse during inpatient hospitalization, and upon discharge to patients psychiatric outpatient provider, primary care provider, or other health rn wound care. Review importance of asking a nurse, psychiatric provider, or primary care provider any questions or problems concerning the psychotropic medications. Verify patient understands the information that has been provided, and understands, accepts, and agrees to psychotropic medications. Review patients safety plan and importance of patient to report to staff while hospitalized if patient is ever a danger to self/others, or unable to care for self, and upon discharge, the importance for patient to contact [facility] or [facility], or go to the nearest emergency room, if patient is ever a danger to self/others, or unable to care for self. Recommend that upon discharge patient establish medication management treatment with a psychiatric provider, establishes routine therapy appointments, and follow-up with primary care provider. Verify patient understands and agrees to these recommendations. 04/19/18 08:11 Subjective: Following up with patient for evaluation of psychosis and safety. Patient reports, "Yeah, so I took the medication. Seemed to be good for mood. I am still concerned about busting the drug ring, and would just like to get put into witness protection. Is that something I can do here?" Patient expresses the following psychiatric symptoms none. Patient reports taking medications as prescribed, and describes response to medications as good. Patient does not report undesirable side effects from the medications, and agrees to continue current medications. Patient describes getting 8 hours of sleep. Objective: Vital Signs Temp Pulse Resp BP Pulse Ox 36.8 C 80 16 117/59 L 96 04/19/18 06:00 04/19/18 06:00 04/19/18 06:00 04/19/18 06:00 04/19/18 06:00 NURSING REPORT: Consulted with nursing for update on patients progress in treatment. Nurses report patient is not engaged in treatment, is not attending groups, slept 7 hours, expresses the following psychiatric symptoms: none, exhibits the following psychiatric symptoms: paranoid delusions; withdrawn from social interactions; is eating all meals, is not agreeable to medications; patient refused Zyprexa Zydis 10 mg po QHS; denies SI/HI, denies A/V hallucinations, and reports delusions regarding needing witness protection due to busting a drug operation. MSE: The patient is a well-nourished male looking stated chronological age. Attire is appropriate dress is casual. Grooming status is inappropriate and disheveled. Ambulation is independent. Gait is normal and coordinated. Posture is normal and relaxed. Eye contact is appropriate. Motor activity is appropriate with purposeful, organized, coordinated movements; with no involuntary movements. Attitude is uncooperative, defensive and guarded at times. Patient appears distracted and does not relate well to this interviewer. Language production is spontaneous. R/R/V normal. Articulation is clear. Patient reports mood as okay with appropriate affect. Patients thought process is non-linear, illogical, with loose associations, and tangential. Patient does not report suicidal/homicidal thoughts, ideas, or plans. Patient denies auditory, visual hallucinations. Patient reports delusions. Patient does not appear to be attending to internal stimuli. Patients attention and concentration are poor. Patient is oriented to person, place, time. Patients insight is poor. Patients judgment is poor. SUBSTANCE ABUSE BRIEF INTERVENTION: Brief intervention regarding the risks of alcohol abuse is provided to patient with goal to reduce the risk of harm that could result from the continued use of alcohol, with the general aim to investigate the problem, raise awareness of problem, develop a solution with the patient, recommend a specific change or activity, and motivate the patient toward change. Assess substance abuse behavior and give supportive advice about harm reduction, recommend a reduction in hazardous/at-risk consumption patterns, and facilitate referrals for additional specialized treatment with hourly caregiver. Intermediate goal is for the patient to quit and attend outpatient substance abuse treatment. Intervention focus on intermediate goals to allow for more immediate success in the treatment process to keep the patient motivated. Review following with patient: Alcohol/Binge Drinking risks : short-term: injuries, violence, alcohol poisoning, risky sexual behaviors. Long-term: high blood pressure, stroke, liver disease, digestive problems, cancer, learning and memory problems, depression and anxiety, social problems, and alcohol dependence. OUTPATIENT SUBSTANCE ABUSE TREATMENT: Patient referred to outpatient provider and treatment for continued treatment related to substance abuse. - Time Spent With Patient Time Spent With Patient: 15 minutes, met with patient individually. - Pending Discharge Pending Discharge Within 24 Hours: No Pending Discharge Within 48 Hours: No ICD10 Worksheet Patient Problems: Problems Problem Status Onset Alcohol use disorder, severe, dependence Acute Nicotine dependence Acute Unspecified psychosis Acute
[2018-04-19] MEDS: NICOTINE POLACRILEX 2 MG GUM B PRN ×2 (08:23→15:37)
[2018-04-19] MEDS: RISPERIDONE 1 MG ODT TAB SL SCH (08:23)
[2018-04-20] MEDS: RISPERIDONE 1 MG ODT TAB SL SCH (09:12)
[2018-04-20] MEDS: NICOTINE POLACRILEX 2 MG GUM B PRN ×2 (09:12→14:35)
--- NOTE | 2018-04-20 15:05 | ASMTCMCOM ---
CM Note CM Note Notes: Pt. stated he is doing an aptitude test currently. Pt. stated he slept "pretty well". Pt. reports the food is "fantastic". Pt. reports no issues with his current medications, adding "it's balancing pretty well". Pt. reports attending "some" groups, adding he is "keeping my mind fresh" and reading, which he enjoys. Pt. reports no issues while on the unit. Pt. denied SI, HI, and AVH. Pt. reports "little bit" of paranoia, adding "given my situation it's understandable". Pt. presents as alert, calm, focused on his test, groomed, continued delusion about needing federal protection, and cooperative. Staff report pt. [id number] hours and being medication compliant. Date Signed: 04/20/2018 03:04 PM Electronically Signed By:Elisa Curtis
--- NOTE | 2018-04-20 19:11 | SOAPPROG ---
SOAP Progress Note Assessment/Plan: Assessment: Per Giovanni Gatica's notes: Bipolar I Disorder, with mood congruent psych features, Alcohol Use Disorder, Severe. R/O Schizoaffective Disorder. No improvement noted. (see subjective/ objective note). Patient is not safe to discharge at this time as patient continues to exhibit signs of psychosis, and express psychosis symptoms. Patient requires continued inpatient care because of current psychosis, and requires inpatient level of care to stabilize in order to no longer be gravely disabled due to mental illness. Patient has poor insight and judgement to current condition, refusing medications, and inability to test reality. Patient is unable to communicate his basic needs due to inability to test reality, and continues to require prompting and direction from staff for ADLs. Patient exhibits inability to provide for himself, neglecting self-care, withdrawn from social interactions, currently shows inability to maintain any appropriate aspect of personal responsibility as an adult. Currently there is no support system in place to manage patients functional impairment at lower level of care. Patient could benefit from continued inpatient hospitalization for crisis stabilization, safety, and medication evaluation. Plan: 1. Psychotropic medications: After reviewing options, risks, and benefits patient agrees to continue current medications with following changes: increase Risperidone M-tab to 2 mg SL QD. PLAN: 04/20/18 19:06 1. Patient taking Risperdal m-tab without any complaint of SE's. 2. Patient still delusional, stating he still feels like he needs to be in "witness protection program." 3. Patient not attending groups or participating in treatment. 4. He reports [facility] wants him to go to [facility] after discharge. 5. [facility] Subjective: Patient says food is "fantastic" and that his meds are "balancing well." He agrees to continue on Risperdal m-tab 2mg daily and denies any SE's from meds. He told MD that he will either go to [facility], which is what his [facility] wants him to do, or "go into the witness protection program," which is what patient prefers. Objective: Vital Signs Temp Pulse Resp BP Pulse Ox 36.8 C 62 14 108/56 L 96 04/20/18 06:00 04/20/18 06:00 04/20/18 06:00 04/20/18 06:00 04/20/18 06:00 MSE: Affect: Euthymic Mood: "OK" TP: Tangential TC: Denies any SI/HI, still has paranoid delusions about drug smuggling and FBI protection Perception: Denies any AH/VH Insight/Judgment: Impaired - Time Spent With Patient Time Spent With Patient: 15" - Pending Discharge Pending Discharge Within 24 Hours: No Pending Discharge Within 48 Hours: No ICD10 Worksheet Patient Problems: Problems Problem Status Onset Alcohol use disorder, severe, dependence Acute Nicotine dependence Acute Unspecified psychosis Acute
[2018-04-21] MEDS: RISPERIDONE 1 MG ODT TAB SL SCH (09:13)
[2018-04-21] MEDS: NICOTINE POLACRILEX 2 MG GUM B PRN ×3 (10:12→18:07)
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
--- NOTE | 2018-04-21 16:53 | SOAPPROG ---
SOAP Progress Note Assessment/Plan: Assessment: Per Giovanni Gatica's notes: Bipolar I Disorder, with mood congruent psych features, Alcohol Use Disorder, Severe. R/O Schizoaffective Disorder. No improvement noted. (see subjective/ objective note). Patient is not safe to discharge at this time as patient continues to exhibit signs of psychosis, and express psychosis symptoms. Patient requires continued inpatient care because of current psychosis, and requires inpatient level of care to stabilize in order to no longer be gravely disabled due to mental illness. Patient has poor insight and judgement to current condition, refusing medications, and inability to test reality. Patient is unable to communicate his basic needs due to inability to test reality, and continues to require prompting and direction from staff for ADLs. Patient exhibits inability to provide for himself, neglecting self-care, withdrawn from social interactions, currently shows inability to maintain any appropriate aspect of personal responsibility as an adult. Currently there is no support system in place to manage patients functional impairment at lower level of care. Patient could benefit from continued inpatient hospitalization for crisis stabilization, safety, and medication evaluation. Plan: 1. Psychotropic medications: After reviewing options, risks, and benefits patient agrees to continue current medications with following changes: increase Risperidone M-tab to 2 mg SL QD. PLAN: 04/20/18 19:06 1. Patient taking Risperdal m-tab without any complaint of SE's. 2. Patient still delusional, stating he still feels like he needs to be in "witness protection program." 3. Patient not attending groups or participating in treatment. 4. He reports [facility] wants him to go to [facility] after discharge. 5. [facility] PLAN: 04/21/18 16:50 1. Patient refuses to attend groups or participate in treatment. 2. Uses elliptical machine for exercise. 3. Agrees to continue taking Risperdal 2mg HS. 4. [facility] to evaluate patient this week. 5. [facility] Subjective: Patient exercising on elliptical machine. Claims he shouldn't be on ST b/c " how can someone who works out every day be severely disabled." Patient slept 8.5 hrs last night. He's still delusional and believes he needs the witness protection program b/c his former employer is trying to smuggle drugs into [place]. He has no SI/HI. Objective: Vital Signs Temp Pulse Resp BP Pulse Ox 36.8 C 61 16 116/56 L 95 04/21/18 06:00 04/21/18 06:00 04/21/18 06:00 04/21/18 06:00 04/21/18 06:00 MSE: Affect: Euthymic Mood: "Good" TP: Tangential TC: Denies any SI/HI, still has paranoid delusions Insight/Judgment: Poor - Time Spent With Patient Time Spent With Patient: 15" - Pending Discharge Pending Discharge Within 24 Hours: No Pending Discharge Within 48 Hours: No ICD10 Worksheet Patient Problems: Problems Problem Status Onset Alcohol use disorder, severe, dependence Acute Nicotine dependence Acute Unspecified psychosis Acute
[2018-04-22] MEDS ORDERED: RISPERIDONE 1 MG ODT TAB SL SCH (06:50)
--- NOTE | 2018-04-22 08:45 | SOAPPROG ---
SOAP Progress Note Assessment/Plan: Assessment: Bipolar I Disorder, with mood congruent psych features, Alcohol Use Disorder, Severe. R/O Schizoaffective Disorder. No improvement noted. (see subjective/ objective note). Patient is not safe to discharge at this time as patient continues to exhibit signs of psychosis, and express psychosis symptoms. Patient requires continued inpatient care because of current psychosis, and requires inpatient level of care to stabilize in order to no longer be gravely disabled due to mental illness. Patient has poor insight and judgement to current condition, refusing medications, and inability to test reality. Patient is unable to communicate his basic needs due to inability to test reality, and continues to require prompting and direction from staff for ADLs. Patient exhibits inability to provide for himself, neglecting self-care, withdrawn from social interactions, currently shows inability to maintain any appropriate aspect of personal responsibility as an adult. Currently there is no support system in place to manage patients functional impairment at lower level of care. Patient could benefit from continued inpatient hospitalization for crisis stabilization, safety, and medication evaluation. Plan: 1. Psychotropic medications: After reviewing options, risks, and benefits patient agrees to continue current medications. No medication changes at this time as more time is needed to determine ongoing tolerability and efficacy. Plan is to continue to observe patient for response and side effects from medications, and ongoing monitoring and evaluation. 2. Review with patient informed consent and recommendations for psychotropic medication treatment listed below 3. Labs: no additional labs at this time 4. Therapy: continue milieu and group therapy 5. Further investigation including gathering information from patients relatives and review of past case records to inform treatment plan. 6. Safety/Wellness plan and follow-up outpatient appointments to be established prior to discharge. Next steps are for patient to meet with career technical education instructor to plan a safe discharge plan and establish outpatient services for ongoing treatment. 7. Confer with inpatient treatment team regarding treatment plan. 8. Psychosocial stressors addressed through pillowcase cleaner 9. Legal status: [facility] 10. Consider discharge next week if patient is in stable condition, safe, and has a safe discharge plan. 11. Substance abuse interventions: alcohol PSYCHOTROPIC MEDICATION TREATMENT INFORMED CONSENT and RECOMMENDATIONS: Review nature of condition, diagnosis, and prognosis. Review nature and purpose of psychotropic medication treatment. Review type of psychotropic medications being ordered. Review risk and benefits of psychotropic medication treatment. Review probable length of time patient will need to take medications. Review risk and benefits of not undergoing psychotropic medication treatment. Review alternative treatments to psychotropic medications. Review psychotropic medications contraindications, drug-drug interactions, side effects, and importance of reporting any side effects to a psychiatric provider or nurse during inpatient hospitalization, and upon discharge to patients psychiatric outpatient provider, primary care provider, or other health home health care worker. Review importance of asking a nurse, psychiatric provider, or primary care provider any questions or problems concerning the psychotropic medications. Verify patient understands the information that has been provided, and understands, accepts, and agrees to psychotropic medications. Review patients safety plan and importance of patient to report to staff while hospitalized if patient is ever a danger to self/others, or unable to care for self, and upon discharge, the importance for patient to contact [facility] or [facility], or go to the nearest emergency room, if patient is ever a danger to self/others, or unable to care for self. Recommend that upon discharge patient establish medication management treatment with a psychiatric provider, establishes routine therapy appointments, and follow-up with primary care provider. Verify patient understands and agrees to these recommendations. 04/22/18 08:43 Subjective: Following up with patient for evaluation of psychosis and safety. Patient reports, "Weekend was uneventful. Just waiting to be put in witness protection for the drug smuggling that was occurring in [facility]. Pretty low kraft about who I talk to about the whole situation." Patient expresses the following psychiatric symptoms none. Patient reports taking medications as prescribed, and describes response to medications as good. Patient does not report undesirable side effects from the medications, and agrees to continue current medications. Patient describes getting 8 hours of sleep. Patient is not agreeable to increasing Risperdal to 3 mg po QD. Patient agrees to continue at 2 mg po QD. Objective: Vital Signs Temp Pulse Resp BP Pulse Ox 36.8 C 50 L 14 87/52 L 96 04/22/18 06:00 04/22/18 06:00 04/22/18 06:00 04/22/18 06:00 04/22/18 06:00 NURSING REPORT: Consulted with nursing for update on patients progress in treatment. Nurses report patient is not engaged in treatment, is not attending groups, slept 7 hours, expresses the following psychiatric symptoms: none, exhibits the following psychiatric symptoms: paranoid delusions; withdrawn from social interactions; is eating all meals; denies SI/HI, denies A/V hallucinations, and reports delusions regarding needing witness protection due to busting a drug ring. MD REPORT FROM WEEKEND: Patient still very delusional, thinks he needs witness protection. Taking Risperdal M-tab. Uncle wants him to go to [facility]. MSE: The patient is a well-nourished male looking stated chronological age. Attire is appropriate dress is casual. Grooming status is inappropriate and disheveled. Ambulation is independent. Gait is normal and coordinated. Posture is normal and relaxed. Eye contact is appropriate. Motor activity is appropriate with purposeful, organized, coordinated movements; with no involuntary movements. Attitude is uncooperative, defensive and guarded at times. Patient appears distracted and does not relate well to this interviewer. Language production is spontaneous. R/R/V normal. Articulation is clear. Patient reports mood as okay with appropriate affect. Patients thought process is non-linear, illogical, with loose associations, and tangential. Patient does not report suicidal/homicidal thoughts, ideas, or plans. Patient denies auditory, visual hallucinations. Patient reports delusions. Patient does not appear to be attending to internal stimuli. Patients attention and concentration are poor. Patient is oriented to person, place, time. Patients insight is poor. Patients judgment is poor. SUBSTANCE ABUSE BRIEF INTERVENTION: Brief intervention regarding the risks of alcohol abuse is provided to patient with goal to reduce the risk of harm that could result from the continued use of alcohol, with the general aim to investigate the problem, raise awareness of problem, develop a solution with the patient, recommend a specific change or activity, and motivate the patient toward change. Assess substance abuse behavior and give supportive advice about harm reduction, recommend a reduction in hazardous/at-risk consumption patterns, and facilitate referrals for additional specialized treatment with congregational care pastor. Intermediate goal is for the patient to quit and attend outpatient substance abuse treatment. Intervention focus on intermediate goals to allow for more immediate success in the treatment process to keep the patient motivated. Review following with patient: Alcohol/Binge Drinking risks : short-term: injuries, violence, alcohol poisoning, risky sexual behaviors. Long-term: high blood pressure, stroke, liver disease, digestive problems, cancer, learning and memory problems, depression and anxiety, social problems, and alcohol dependence. OUTPATIENT SUBSTANCE ABUSE TREATMENT: Patient referred to outpatient provider and treatment for continued treatment related to substance abuse. - Time Spent With Patient Time Spent With Patient: 15 minutes, met with patient individually. - Pending Discharge Pending Discharge Within 24 Hours: No Pending Discharge Within 48 Hours: No ICD10 Worksheet Patient Problems: Problems Problem Status Onset Alcohol use disorder, severe, dependence Acute Nicotine dependence Acute Unspecified psychosis Acute
[2018-04-22] MEDS: RISPERIDONE 1 MG ODT TAB SL SCH (09:00)
[2018-04-22] MEDS: NICOTINE POLACRILEX 2 MG GUM B PRN ×2 (09:43→13:05)
--- NOTE | 2018-04-22 13:00 | ASMTBHDC ---
Notes Note: Notes: CC [place] [facility] [place] status of getting a bed at [facility].* Waiting to hear back. Date Signed: 04/22/2018 12:55 PM Electronically Signed By:Elias Downs
[2018-04-23] MEDS: RISPERIDONE 1 MG ODT TAB SL SCH (08:23)
--- NOTE | 2018-04-23 08:33 | SOAPPROG ---
SOAP Progress Note Assessment/Plan: Assessment: Bipolar I Disorder, with mood congruent psych features, Alcohol Use Disorder, Severe. R/O Schizoaffective Disorder. No improvement noted. (see subjective/ objective note). Patient is not safe to discharge at this time as patient continues to exhibit signs of psychosis, and express psychosis symptoms. Patient requires continued inpatient care because of current psychosis, and requires inpatient level of care to stabilize in order to no longer be gravely disabled due to mental illness. Patient has poor insight and judgement to current condition, refusing medications, and inability to test reality. Patient is unable to communicate his basic needs due to inability to test reality, and continues to require prompting and direction from staff for ADLs. Patient exhibits inability to provide for himself, neglecting self-care, withdrawn from social interactions, currently shows inability to maintain any appropriate aspect of personal responsibility as an adult. Currently there is no support system in place to manage patients functional impairment at lower level of care. Patient could benefit from continued inpatient hospitalization for crisis stabilization, safety, and medication evaluation. Plan: 1. Psychotropic medications: After reviewing options, risks, and benefits patient agrees to continue current medications. No medication changes at this time as more time is needed to determine ongoing tolerability and efficacy. Plan is to continue to observe patient for response and side effects from medications, and ongoing monitoring and evaluation. 2. Review with patient informed consent and recommendations for psychotropic medication treatment listed below 3. Labs: no additional labs at this time 4. Therapy: continue milieu and group therapy 5. Further investigation including gathering information from patients relatives and review of past case records to inform treatment plan. 6. Safety/Wellness plan and follow-up outpatient appointments to be established prior to discharge. Next steps are for patient to meet with farm or ranch animal caretaker to plan a safe discharge plan and establish outpatient services for ongoing treatment. 7. Confer with inpatient treatment team regarding treatment plan. 8. Psychosocial stressors addressed through case assembler 9. Legal status: [facility] 10. Consider discharge next week if patient is in stable condition, safe, and has a safe discharge plan. 11. Substance abuse interventions: alcohol PSYCHOTROPIC MEDICATION TREATMENT INFORMED CONSENT and RECOMMENDATIONS: Review nature of condition, diagnosis, and prognosis. Review nature and purpose of psychotropic medication treatment. Review type of psychotropic medications being ordered. Review risk and benefits of psychotropic medication treatment. Review probable length of time patient will need to take medications. Review risk and benefits of not undergoing psychotropic medication treatment. Review alternative treatments to psychotropic medications. Review psychotropic medications contraindications, drug-drug interactions, side effects, and importance of reporting any side effects to a psychiatric provider or nurse during inpatient hospitalization, and upon discharge to patients psychiatric outpatient provider, primary care provider, or other health career and transition teacher. Review importance of asking a nurse, psychiatric provider, or primary care provider any questions or problems concerning the psychotropic medications. Verify patient understands the information that has been provided, and understands, accepts, and agrees to psychotropic medications. Review patients safety plan and importance of patient to report to staff while hospitalized if patient is ever a danger to self/others, or unable to care for self, and upon discharge, the importance for patient to contact [facility] or 1, or go to the nearest emergency room, if patient is ever a danger to self/others, or unable to care for self. Recommend that upon discharge patient establish medication management treatment with a psychiatric provider, establishes routine therapy appointments, and follow-up with primary care provider. Verify patient understands and agrees to these recommendations. 04/23/18 08:33 Subjective: Following up with patient for evaluation of psychosis and safety. Patient reports, "Still on this witness protection thing. Wondering who I need to get in touch with. I remember everything, I am just disclosing the cocaine stuff, not the YouTube video stuff. Thats a different subject entirely. Never had something like this happen before. 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 Then he asked if the company could do business in [place]. He was bragging about smuggling drugs into [place]. As soon as the employee was let go, all this weird stuff started happening to me. Lost my phone, my identity was compromised. Without question this gustabo was a drug trafficker. Now concerned about being in trouble from this drug organization because I am talking about this stuff." Patient expresses the following psychiatric symptoms none. Patient reports taking medications as prescribed, and describes response to medications as good. Patient does not report undesirable side effects from the medications, and agrees to continue current medications. Patient describes getting 8 hours of sleep. Patient agrees to discharge to [facility] after discharge. Patient states, "I think going there for some alcohol rehab would be good." Objective: Vital Signs Temp Pulse Resp BP Pulse Ox 36.8 C 63 14 114/66 96 04/23/18 06:00 04/23/18 06:00 04/23/18 06:00 04/23/18 06:00 04/23/18 06:00 NURSING REPORT: Consulted with nursing for update on patients progress in treatment. Nurses report patient is not engaged in treatment, is not attending groups, slept 8 hours, expresses the following psychiatric symptoms: none, exhibits the following psychiatric symptoms: paranoid delusions; withdrawn from social interactions; is eating all meals; denies SI/HI, denies A/V hallucinations, and reports delusions regarding needing witness protection. MD REPORT FROM WEEKEND: Patient still very delusional, thinks he needs witness protection. Taking Risperdal M-tab. Uncle wants him to go to [facility]. MSE: The patient is a well-nourished male looking stated chronological age. Attire is appropriate dress is casual. Grooming status is inappropriate and disheveled. Ambulation is independent. Gait is normal and coordinated. Posture is normal and relaxed. Eye contact is appropriate. Motor activity is appropriate with purposeful, organized, coordinated movements; with no involuntary movements. Attitude is uncooperative, defensive and guarded at times. Patient appears distracted and does not relate well to this interviewer. Language production is spontaneous. R/R/V normal. Articulation is clear. Patient reports mood as okay with appropriate affect. Patients thought process is non-linear, illogical, with loose associations, and tangential. Patient does not report suicidal/homicidal thoughts, ideas, or plans. Patient denies auditory, visual hallucinations. Patient reports delusions. Patient does not appear to be attending to internal stimuli. Patients attention and concentration are poor. Patient is oriented to person, place, time. Patients insight is poor. Patients judgment is poor. SUBSTANCE ABUSE BRIEF INTERVENTION: Brief intervention regarding the risks of alcohol abuse is provided to patient with goal to reduce the risk of harm that could result from the continued use of alcohol, with the general aim to investigate the problem, raise awareness of problem, develop a solution with the patient, recommend a specific change or activity, and motivate the patient toward change. Assess substance abuse behavior and give supportive advice about harm reduction, recommend a reduction in hazardous/at-risk consumption patterns, and facilitate referrals for additional specialized treatment with medication care manager. Intermediate goal is for the patient to quit and attend outpatient substance abuse treatment. Intervention focus on intermediate goals to allow for more immediate success in the treatment process to keep the patient motivated. Review following with patient: Alcohol/Binge Drinking risks : short-term: injuries, violence, alcohol poisoning, risky sexual behaviors. Long-term: high blood pressure, stroke, liver disease, digestive problems, cancer, learning and memory problems, depression and anxiety, social problems, and alcohol dependence. OUTPATIENT SUBSTANCE ABUSE TREATMENT: Patient referred to outpatient provider and treatment for continued treatment related to substance abuse. - Time Spent With Patient Time Spent With Patient: 15 minutes, met with patient individually. - Pending Discharge Pending Discharge Within 24 Hours: No Pending Discharge Within 48 Hours: No ICD10 Worksheet Patient Problems: Problems Problem Status Onset Alcohol use disorder, severe, dependence Acute Nicotine dependence Acute Unspecified psychosis Acute
--- NOTE | 2018-04-23 14:32 | ASMTCMCOM ---
CM Note CM Note Notes: Pt. reports "doing fine". Pt. stated he slept "well, pretty well". Pt. stated he has read 4-5 books while on the unit. Pt. reports eating well and attending "some" groups. Pt. stated he believes he might be having an allergic reaction adding he has "ichy bumps on the back of my neck", adding his acne is coming back. Pt. stated his uncle lives in both [place] and [place]. Pt. stated tomorrow will be his 28th birthday. Pt. denied SI, HI, and AVH. Pt. reports "little bit" of paranoia about needing to be in witness protection. Pt. presents as alert, calm, pleasant, good eye contact, and cooperative. Staff report pt. sleeping 12.5 hours and being medication compliant. Date Signed: 04/23/2018 02:31 PM Electronically Signed By:Elisa Curtis
[2018-04-23] MEDS: NICOTINE POLACRILEX 2 MG GUM B PRN ×2 (14:50→17:58)
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
[2018-04-24] MEDS: RISPERIDONE 1 MG ODT TAB SL SCH (09:08)
[2018-04-25 06:39] VITALS: BP 112/63
[2018-04-25] MEDS: RISPERIDONE 1 MG ODT TAB SL SCH (09:09)
[2018-04-25] MEDS: NICOTINE POLACRILEX 2 MG GUM B PRN (10:23)
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
== END 2018-04-25 09:40 | DRG 885 ==
LOC: BBEH 21:30
PROVIDERS: ADMIT Psychiatry & Neurology Psychiatry; ATTEND Psychiatry & Neurology Psychiatry
DX: F22 Delusional disorders (principal); Z59.0 Homelessness; Z72.89 Other problems related to lifestyle; F17.200 Nicotine dependence, unspecified, uncomplicated
CPT/HCPCS: 80305; G0480